=== PATIENT | female | born 1945 ===

== ENCOUNTER 2020-12-09 07:30 | Inpatient (IN) | payer OTHER ==
[~2020-12-09] VITALS: Ht 152.4 cm; Wt 64.9 kg
[2020-12-09] MEDS ORDERED: COZAAR50 MG PO (08:39)
[2020-12-09] MEDS ORDERED: ATORVASTATIN CA10 MG PO (08:40)
[2020-12-09] MEDS ORDERED: ARICEPT10 MG PO (08:41)
[2020-12-09] MEDS ORDERED: FOLIC ACID1 MG PO (08:41)
[2020-12-09] MEDS ORDERED: METFORMIN HCL500 M3 PO (08:41)
[2020-12-09] MEDS ORDERED: NAMENDA10 MG PO (08:41)
[2020-12-09] MEDS ORDERED: CHILDREN'S ASPI81 MG PO (08:42)
[2020-12-09] MEDS ORDERED: MAXIMUM D3325 MCG PO (08:42)
[2020-12-18] MEDS ORDERED: PERCOCET 5-3251 EACH PO (10:51)
[2020-12-18] MEDS ORDERED: ELIQUIS2.5 MG PO (10:51)
[2020-12-18] MEDS ORDERED: DUI500 PO (10:51)
== END 2020-12-18 19:42 | DRG 470 ==
LOC: O/R 12-16 05:23 → SURH 12-16 05:23
PROVIDERS: ADMIT Orthopaedic Surgery; ATTEND Orthopaedic Surgery
PROC: 0SRD0J9 Replacement of Left Knee Joint with Synthetic Substitute, Cemented, Open Approach (ICD-10-PCS; principal; 2020-12-16 13:30)
PROC: 30233N1 Transfusion of Nonautologous Red Blood Cells into Peripheral Vein, Percutaneous Approach (ICD-10-PCS; 2020-12-17)
DX: M17.12 Unilateral primary osteoarthritis, left knee (principal); D62 Acute posthemorrhagic anemia; I10 Essential (primary) hypertension; E11.9 Type 2 diabetes mellitus without complications; Z79.84 Long term (current) use of oral hypoglycemic drugs